=== PATIENT | male | born 1990 | race Caucasian/White ===

== ENCOUNTER 2018-12-17 21:51 | Emergency (ER) | payer SELFPAY ==
[~2018-12-17] VITALS: Ht 190.5 cm; Wt 74.8 kg
[2018-12-17 21:54] VITALS: BP 150/94
[2018-12-17] MEDS ORDERED: ONDANSETRON 4 MG TAB.RAPDIS SL ONE (23:00)
[2018-12-17] MEDS ORDERED: ONDANSETRON 4 MG TAB.RAPDIS ONE (23:21)
--- NOTE | 2018-12-17 23:42 | NUR ---
Patient discharged to home in stable condition. Written and verbal after care instructions given. Patient verbalizes understanding of instruction.
== END 2018-12-17 23:42 | disposition home or self-care (01) ==
LOC: ER 21:57
DX: F12.10 Cannabis abuse, uncomplicated (principal); R11.2 Nausea with vomiting, unspecified; F41.9 Anxiety disorder, unspecified; F32.9 Major depressive disorder, single episode, unspecified
CPT/HCPCS: Q0162